=== PATIENT | male | born 1960 | race Caucasian/White ===

== ENCOUNTER 2017-11-17 08:19 | Inpatient (IN) | payer OTHER ==
[~2017-11-17] VITALS: Ht 175.3 cm; Wt 79.4 kg
[~2017-11-17 08:19] MED LIST: CYCLOBENZAPRINE10 MG PO; IBUPROFEN800 MG PO; LISINOPRIL20 MG PO; NORCO 5-325 TA1 EACH PO
[2017-11-21] MEDS ORDERED: ASPIR-LOW81 MG PO (09:48)
--- NOTE | 2017-11-28 13:38 | NUR ---
11/28/17 1337 Yadira Munoz 1321 PT ARRIVED TO PACU, WITH ORAL IN PLACE ON 10L VIA MASK, O2 SAT 100%. O2 MASK DECREASED TO 8L. 1325 PT WOKE UP TO STIMULI, PT OPENED HIS MOUTH AND ORAL AIRWAY WAS RMEOVED. PT REACHED UP AND PULLED MASK OFF. PT MOVING IN BAD UNABLE TO FOLLOW COMMANDS, PT RESTLESS. 1330 PT ASLEEP, SNORING NOTED. PT MAINTAINING OWN AIRWAY. ICE IN PLACE ON SHOULDER. SLING IN PLACE FORM OR.
[2017-11-28] MEDS ORDERED: CRESTOR10 MG PO (13:51)
--- NOTE | 2017-11-28 13:53 | NUR ---
MED REC COMPLETE WITH [facility] REFILL HISTORY.
--- NOTE | 2017-11-28 15:34 | NUR ---
PHYSICAL THERAPY WORKING WITH PATIENT NOW. IV INFILTRATED. WILL GET NEW IV INSERTED AFTER PHYSICAL THERAPY DONE WITH PATIENT. TRANEXEMIC ACID LATE D/T IV INFILTRATION.
--- NOTE | 2017-11-28 16:03 | NUR ---
Patient sitting up on bedside. Patient up to bathroom, back to bedside. RN in room. Family in room. Call light in reach. No other needs at this time.
--- NOTE | 2017-11-28 16:35 | NUR ---
pt awake and tolerating clear liquids and crackers. regular diet ordered for patient. and friend at bedside. pain 0/10. numb and weak right arm.
--- NOTE | 2017-11-28 16:59 | NUR ---
PT UP TO BATHROOM. SBA. DENIES DIZZINESS OR SOB.
--- NOTE | 2017-11-28 17:53 | NUR ---
PATIENT ARRIVED TO FLOOR AT 1420 FROM PACU. RIGHT ARM IN SLING. SHOULDER DRESSING HAS DURABOND, MEPILEX, AND OPSITE IN PLACE. NO BREAKTHROUGH DRAINAGE SEEN. TO STAY NIGHT WITH PATIENT. ROOM AIR. SALINE LOCKED. TOLERATED REGULAR DIET. STANDBY ASSIST-- MAY NEED BED ALARM TONIGHT (PATIENT LIKELY TO GET UP WITHOUT CALLING FOR HELP). SLIGHTLY UNSTEADY ON FEET. TORADOL/TYLENOL SCHEDULED. ICE PACKS FOR SWELLING/COMFORT.
--- NOTE | 2017-11-28 17:55 | NUR ---
PATIENT RESTING IN BED, EYES CLOSED. RN STATES VITALS WERE ALREADY TAKEN. PATIENTS FAMILY IN ROOM. FRESH ICE WATER ON BEDSIDE TABLE. URINAL ON BEDSIDE TABLE PER PATIENTS REQUEST. CALL LIGHT IN REACH. NO OTHER NEEDS AT THIS TIME.
--- NOTE | 2017-11-28 19:00 | NUR ---
RECEIVED REPORT FROM RN. PATIENT RESTING IN BED, BREATHING IS EVEN AND UNLABORED. O2 SATURATION IS 97% ON ROOM AIR. DENIES PAIN. CALL LIGHT WITHIN REACH, ALL ORDERS IN PLACE.
--- NOTE | 2017-11-28 20:13 | NUR ---
PATIENT RESTING IN BED, BREATHING IS EVEN AND UNLABORED. DENIES NEEDS AT THIS TIME, REPORTS 0/10 PAIN. CALL LIGHT WITHIN REACH.
--- NOTE | 2017-11-28 22:45 | NUR ---
PATIENT RESTING COMFORTABLY IN BED, BREATHING IS EVEN AND UNLABORED. FLACC SCORE OF 0. CALL LIGHT WITHIN REACH, ALL ORDERS IN PLACE.
--- NOTE | 2017-11-29 00:47 | NUR ---
PATIENT RESTING IN CHAIR. DENIES NEEDS AT THIS TIME. 0/10 PAIN. CALL LIGHT WITHIN REACH.
--- NOTE | 2017-11-29 02:09 | NUR ---
PATIENT RESTING IN BED, BREATHING IS EVEN AND UNLABORED. DENIES NEEDS AT THIS TIME, REPORTS 0/10 PAIN. CALL LIGHT WITHIN REACH, ALL ORDERS IN PLACE.
--- NOTE | 2017-11-29 05:40 | NUR ---
PATIENT RESTING COMFORTABLY IN BED, BREATHING IS EVEN AND UNLABORED. DENIES PAIN AT THIS TIME. DENIES NEEDS. CALL LIGHT WITHIN REACH.
--- NOTE | 2017-11-29 05:46 | NUR ---
PATIENT'S NIGHT WAS UNEVENTFUL. HE HAS BEEN RESTING OFF AND ON THROUGHOUT SHIFT. VSS, URINE OUTPUT QS. PAIN HAS BEEN 0/10 THROUGHOUT SHIFT. ASSESSMENT IS BENIGN, SCANT AMOUNT OF DRAINAGE FROM DRESSING TO RIGHT SHOULDER NOTED, SIZE OF PENCIL ERASER. NUMBNESS AND TINGLING IN RIGHT ARM IMPROVING, HAS SENSATION FROM MID FOREARM TO FINGERS. HAS SLING TO RIGHT ARM IN PLACE. IV IS SALINE LOCKED, SBA, TOLERATING REGULAR DIET. NO ACUTE CHAGNES FROM BEGINNING OF SHIFT.
--- NOTE | 2017-11-29 08:10 | NUR ---
REPORT RECEIVED FROM MASON. ASSUMING PATIENT'S CARE AT THIS TIME. PATIENT RESTING IN BED AWAKE ALERT AND ORIENTED TO ALL. PATIENT REPORT NUMBNESS AND TINGLING IN THE RIGHT ARM,THE THUMB AND THE INDEX FINGERS OF THE LEFT HAND.CALL LIGHT IN REACH.
--- NOTE | 2017-11-29 08:20 | NUR ---
Patient sitting up in bed. PAtient stated he would not like a wipe down today because he would like to do so at home today instead. Bed bath wipes and clean gown set up in bathroom for patient. Oral care and clean wash cloth for face and hands set up in bathroom at patients request. Fresh ice water at bedside table. Call light in reach. No other needs at this time.
--- NOTE | 2017-11-29 09:45 | OR ---
[facility] [address], [place] [address] Signed DATE OF OPERATION: 11/28/2017 SURGEON: Susan Cárdenas MD PREOPERATIVE DIAGNOSIS: End-stage osteoarthritis right shoulder. POSTOPERATIVE DIAGNOSIS: End-stage osteoarthritis right shoulder. PROCEDURE: Hemiarthroplasty right shoulder. ANESTHESIA: Block with sedation. SPECIMENS: There were no specimens. COMPLICATIONS: No complications. BLOOD LOSS: About 250 mL. WHAT WAS DONE: The patient was taken to the operating room. After anesthesia was induced and airway secured, the patient was positioned, prepped and draped in a routine sterile fashion. An anterior deltopectoral incision was made through skin and subcutaneous tissue. Hemostasis was achieved with electrocautery. We then used blunt dissection to identify the deltopectoral interval. The cephalic vein was identified and retracted laterally with the deltoid. We then released the clavipectoral fascia. Because of the marked loss of external rotation, released the upper 3rd of the pec major tendon right off the bone. We then gently mobilized the subscapularis off the lesser tuberosity and placed some stay sutures in its leading edge. We allowed it to retract and then did an anterior capsulectomy. By externally rotating the arm, we were able gently used sharp and blunt dissection to peel the capsule off the large osteophyte underneath the humeral head. We were then able to deliver the humeral head into the wound. Using a hand reamers, we reamed the humerus up to a size 14. We then placed the proximal resection jig on and used to do a proximal humeral head resection. The resected portion measured Electronically Signed By: SUSAN CÁRDENAS MD 11/29/17 0945 PATIENT NAME: OLGA SCHMITT OPERATIVE REPORT DATE OF : 58 REPORT #: [id number] PHYSICIAN: SUSAN CÁRDENAS MD PCP: [place] PADRON MD REPORT IS CONFIDENTIAL AND NOT TO BE RELEASED WITHOUT AUTHORIZATION [facility] [address], [place] [address] Signed 18 x 52 mm. We then delivered the proximal humerus in the wound and removed all the medial and posterior osteophytes. We then gently released the capsule off the glenoid side all the way down to the 6 o'clock position. This gave us excellent visualization of the glenoid, which appeared to be the remarkably unaffected. There was good articular cartilage almost everywhere. We therefore elected not to proceed with the glenoid replacement. We then returned to the proximal humerus. It was prepared with a standard broach and reamer maintaining about 25 degrees of retroversion, which is where the cut had been made. We had excellent fit and fill with a 14 mm implant trial. We then reduced it with an extent within eccentric 18 x 52 mm head and we were happy with the coverage, the alignment, the position, and stability. We then removed the trials. As removed the trials are appeared to be a small crack in the anterior cortex. We therefore passed a single cerclage wire just underneath the rotator cuff insertion all the way around and secured it. We then able to pass the final implant again with good alignment, good position, and excellent stability. We then trialed and were happy with the 21 x 52 head giving us a little bit better stability and not compromising a motion. We therefore placed the eccentric head on the Mathews taper. We located the shoulder. The wound was copiously irrigated and closed in a standard fashion. Sterile dressings were applied. The patient was placed in a sling, awakened, and taken to the recovery room where he arrived in stable condition. Counts were correct and antibiotic protocols were followed. Susan Cárdenas MD WFB/MODL /[id number] Copies: ~ Electronically Signed By: SUSAN CÁRDENAS MD 11/29/17 0945 PATIENT NAME: OLGA SCHMITT OPERATIVE REPORT DATE OF : 58 REPORT #: [id number] PHYSICIAN: SUSAN CÁRDENAS MD PCP: [place] PADRON MD REPORT IS CONFIDENTIAL AND NOT TO BE RELEASED WITHOUT AUTHORIZATION
--- NOTE | 2017-11-29 10:06 | NUR ---
PATIENT SITTING UP IN BED. RN IN ROOM. VITALS AND I&OS TAKEN, FRESG ICE WATER AT BEDSIDE TABLE, CALL LIGHT IN REACH. NO OTHER NEEDS AT THIS TIME.
--- NOTE | 2017-11-29 12:04 | NUR ---
WAS IN TO SEE PATIENT AND DISCUSS FELICIANO OF CARE
--- NOTE | 2017-11-29 12:13 | NUR ---
PATIENT SITTING UP IN BED WAITING FOR PT. CALL LIGHT IN REACH. NO OTHER NEEDS AT THIS TIME.
--- NOTE | 2017-11-29 12:30 | NUR ---
PATIENT SITTING IN BED EATING LUNCH. NO REQUEST MADE.
[2017-11-29] MEDS ORDERED: NORCO 10-325 T1 EACH PO (12:54)
[2017-11-29] MEDS ORDERED: TYLENOL325 MG PO (12:55)
--- NOTE | 2017-11-29 13:40 | NUR ---
PATIENT RESTING IN BED, DC EDUCATION DONE. PATIENT WAS MEDICATEDFOR RIGHT SHOULDER PAIN. WATING FOR PHARMACY FOR MEDICATION INSTRUCTION BEFORE DC.
--- NOTE | 2017-11-29 13:48 | NUR ---
PATIENT DRESSED IN PERSONAL CLOTHES, WAITING FOR DISCHARGE INSTRUCTIONS. FRESH ICE WATER ON BEDSIDE TABLE. CALL LIGHT IN REACH. NO OTHER NEEDS AT THIS TIME.
--- NOTE | 2017-11-30 18:31 | NUR ---
FAXED CHART NOTES INCLUDING FACESHEET, ORDER, H AND P, PROG NOTES, OP NOTE AND PT EVAL AND NOTES TO [facility]. RECIEVED A FAX CONFIRMATION.
== END 2017-11-29 14:10 | disposition home or self-care (01) | DRG 483 ==
LOC: MS 11-28 06:45 → DSVR 11-28 06:50 → MS 11-28 08:45
PROVIDERS: ADMIT Orthopaedic Surgery
PROC: 3E0T3BZ Introduction of Anesthetic Agent into Peripheral Nerves and Plexi, Percutaneous Approach (ICD-10-PCS; 2017-11-28)
PROC: 0RRJ0J6 Replacement of Right Shoulder Joint with Synthetic Substitute, Humeral Surface, Open Approach (ICD-10-PCS; principal; 2017-11-28 10:00)
DX: M19.011 Primary osteoarthritis, right shoulder (principal); G89.18 Other acute postprocedural pain; I10 Essential (primary) hypertension; F17.220 Nicotine dependence, chewing tobacco, uncomplicated; Z95.1 Presence of aortocoronary bypass graft; Z79.82 Long term (current) use of aspirin; Z79.899 Other long term (current) drug therapy
CPT/HCPCS: 01630; 36415; 64415; 73020; 76942; 80048; 85025; 97161; 97530; C1713; C1776; J0330; J0690; J1100; J1885; J2250; J2405; J2704; J2765; J3010; J7120